=== PATIENT | male | born 1980 | race Two or more races ===

== ENCOUNTER 2020-06-26 11:35 | Emergency (ER) | payer OTHER ==
[~2020-06-26] VITALS: Ht 188 cm; Wt 98.4 kg
== END 2020-06-26 17:54 | disposition home or self-care (01) ==
LOC: ER 11:35
DX: R07.89 Other chest pain (principal); F41.8 Other specified anxiety disorders; Z03.818 Encounter for observation for suspected exposure to other biological agents ruled out